=== PATIENT | male | born 1985 | race Caucasian/White ===

== ENCOUNTER 2017-05-01 06:28 | Day surgery (SDC) | payer OTHER ==
[2017-04-28 08:54] VITALS: BMI 40.4
[2017-05-01] MEDS ORDERED: Midazolam HCl 2 mg/2 ml Vial ONE (09:19)
[2017-05-01] MEDS ORDERED: Fentanyl 100 MCG/2 ML VIAL ONE ×2 (09:20→13:16)
[2017-05-01] MEDS ORDERED: Bupivacaine HCl 0.5%/Epinephrine 1:200,000/PF 30 ml Vial ONE ×2 (09:22→10:19)
[2017-05-01] MEDS ORDERED: Glycopyrrolate 0.2 MG/ML 5 ML SYRINGE ONE (09:42)
[2017-05-01] MEDS ORDERED: Dexamethasone 20 MG/5 ML VIAL ONE (09:42)
[2017-05-01] MEDS ORDERED: Propofol 200 MG/20 ML VIAL ONE (09:42)
[2017-05-01] MEDS ORDERED: Ketorolac Tromethamine 30 MG/ML VIAL ONE (09:42)
[2017-05-01] MEDS ORDERED: PHENYLEPHRINE-NS 100 MCG/ML 10 ML SYRINGE ONE (09:42)
[2017-05-01] MEDS ORDERED: Lidocaine 1% PF 5 ML VIAL ONE (09:42)
[2017-05-01] MEDS ORDERED: Ondansetron HCl/PF 4 MG/2 ML Vial ONE (09:42)
--- NOTE | 2017-05-01 11:11 | OP ---
DATE OF PROCEDURE: 05/01/2017 SURGEON: Thomas Cortez M.D. [employer] OFFICER: Clay Leon PA-C INDICATION: Pain. DIAGNOSIS: Lumbar radiculopathy. PROCEDURE PERFORMED: Left L5 discectomy. ANESTHESIA: General. TECHNIQUE: The patient was brought into the operating room and placed under general anesthesia. He was flipped from a supine to a prone position on the operating room table. A linear incision was p lanned over the L5 segment. After prepping and draping and after an appropriate operative pause, th e incision was created. The soft tissues were swept left of midline. Due to the patient's morbid o besity, a 22 modifier will be applied to the case due to increased difficulty, at least 50% increase d in operative time. After identifying the appropriate level of C-arm fluoroscopy, 2, 3 and 4 mm Ke rrisons were used to perform laminectomy along the inferior aspect of L5 and the superior aspect of S1 on the left. The descending S1 nerve root was identified and mobilized medially with a nerve philip t retractor. An annulotomy was performed in the L5 disc space. All disc material was removed and t he descending S1 nerve root was removed. After complete decompression, the wound was irrigated. He mostasis was maintained throughout. The wound was then closed in anatomic layers and a pressure robby ssing was applied. There were no known procedural complications.
[2017-05-01] MEDS ORDERED: Tamsulosin HCl 0.4 MG CAP ONE (12:47)
[2017-05-01] MEDS ORDERED: HYDROcodone/Acetaminophen 5/325 mg Tablet ONE (14:46)
== END 2017-05-01 17:10 | disposition home or self-care (01) ==
LOC: SDC 06:28
PROVIDERS: ATTEND Neurological Surgery
PROC: 00NY0ZZ Release Lumbar Spinal Cord, Open Approach (ICD-10-PCS; principal; 2017-05-01)
DX: M54.16 Radiculopathy, lumbar region (principal); E66.01 Morbid (severe) obesity due to excess calories; Z68.41 Body mass index [BMI] 40.0-44.9, adult; Z88.1 Allergy status to other antibiotic agents; Z98.890 Other specified postprocedural states
CPT/HCPCS: 76001; 96374; J0670; J1100; J1170; J1885; J2001; J2250; J2405; J2704; J3010

== ENCOUNTER 2017-12-18 09:26 | Outpatient (CLI) | payer OTHER ==
[2017-12-18] MEDS ORDERED: Gadobenate Dimeglumine 529 MG/1 ML (20ML VIAL) ONE (13:05)
== END 2017-12-18 09:27 | disposition home or self-care (01) ==
LOC: BICMRI 09:26
PROVIDERS: ATTEND Physical Medicine & Rehabilitation
DX: M47.896 Other spondylosis, lumbar region (principal); M47.897 Other spondylosis, lumbosacral region; M51.36 Other intervertebral disc degeneration, lumbar region; Z98.890 Other specified postprocedural states
CPT/HCPCS: 72158; A9579

== ENCOUNTER 2018-04-30 11:43 | Outpatient (CLI) | payer OTHER | END 2018-04-30 11:44 | disposition home or self-care (01) | LOC: BICRAD 11:43 | PROVIDERS: ATTEND Physical Medicine & Rehabilitation | DX: M54.5 Low back pain (principal); M47.816 Spondylosis without myelopathy or radiculopathy, lumbar region | CPT/HCPCS: 72110 ==

== ENCOUNTER 2018-06-12 08:08 | Outpatient (CLI) | payer OTHER ==
--- NOTE | 2018-06-12 10:04 | CT ---
CT LUMBAR SPINE WITHOUT IV CONTRAST: HISTORY: A 32-year-old male with a history of low back pain and a history of surgery one year ago, still havin g pain. FINDINGS: Lumbar spine CT demonstrates no evidence for acute fracture or dislocation. At L1-L2 and L2-L3, there is no focal herniation or significant canal or foraminal stenosis. L3-L4: There is mild disk bulging with mild central canal and lateral recess stenosis without signif icant foraminal stenosis. L4-L5: There is moderate diffuse disk bulging, somewhat asymmetrically prominent in the left postero lateral aspect, with moderate central canal and lateral recess stenosis and mild foraminal stenosis. L5-S1: Large central protrusion with marked thecal sac compression and canal and lateral recess sten osis with mild foraminal stenosis. IMPRESSION: 1. Large protrusion at L5-S1 with marked canal and lateral recess stenosis. 2. Moderate central canal and lateral recess stenosis at L4-L5. 3. Mild canal and lateral recess stenosis at L3-L4. POS: [facility]
== END 2018-06-12 08:09 | disposition home or self-care (01) ==
LOC: TBSIIMAG 08:08
PROVIDERS: ATTEND Neurological Surgery
DX: M54.5 Low back pain (principal); M51.27 Other intervertebral disc displacement, lumbosacral region; M99.83 Other biomechanical lesions of lumbar region; M48.061 Spinal stenosis, lumbar region without neurogenic claudication; M48.07 Spinal stenosis, lumbosacral region
CPT/HCPCS: 72131